=== PATIENT | female | born 1970 | race Caucasian/White ===

== ENCOUNTER → 2016-11-11 | Outpatient (CLI) | payer OTHER | LOC: FIMAGING 09:14 | DX: Z12.31 Encounter for screening mammogram for malignant neoplasm of breast (principal); Z80.3 Family history of malignant neoplasm of breast | CPT/HCPCS: G0202 ==

== ENCOUNTER → 2016-11-14 | Outpatient (CLI) | payer OTHER | LOC: FIMAGING 12:20 | PROVIDERS: ATTEND Internal Medicine Endocrinology, Diabetes & Metabolism | DX: E06.3 Autoimmune thyroiditis (principal) ==

== ENCOUNTER 2017-09-30 00:22 | Emergency (ER) | payer OTHER ==
--- NOTE | 2017-09-30 00:26 | EDPHY ---
H & P Time Seen by Provider: 09/30/17 00:27 HPI/ROS: HPI CHIEF COMPLAINT: Right thumb pain HISTORY OF PRESENT ILLNESS: Patient very pleasant 47-year-old female she caught her right thumb in the car door around 330 in the afternoon yesterday. She has ongoing throbbing pain. Denies any other areas of pain except to the right thumb. She has a subungual hematoma that she tried to self drained with a needle. She states she was able to get a little bit of blood out however continues to throb very much so. Pain is 8/10 throbbing. Prevented her to sleep. She took Tylenol prior to arrival. Past Medical History: Denies significant medical history except for hypothyroidism Past Surgical History: , appendectomy Social History: Denies drugs alcohol tobacco. Family History: Noncontributory ROS REVIEW OF SYSTEMS: A comprehensive 10 point review of systems is otherwise negative aside from elements mentioned in the history of present illness. Exam Constitutional appears well nontoxic no acute distress triage nursing summary reviewed, vital signs reviewed, awake/alert. Eyes normal conjunctivae and sclera, EOMI, PERRLA. HENT normal inspection, atraumatic, moist mucus membranes, no epistaxis, neck supple/ no meningismus, no raccoon eyes. Respiratory clear to auscultation bilaterally, normal breath sounds, no respiratory distress, no wheezing. Cardiovascular rate normal, regular rhythm, no murmur, no edema, distal pulses normal. Gastrointestinal soft, non-tender, no rebound, no guarding, normal bowel sounds, no distension, no pulsatile mass. Genitourinary no CVA tenderness. Musculoskeletal right hand: This is neurovascularly intact with good cap refill, full range of motion right thumb distal aspect there is a subungual hematoma present. There is a hole that was made in the nail bed self-inflicted with a needle. She has full range of motion of her right thumb there is swelling noted the distal aspect. no midline vertebral tenderness, full range of motion, no calf swelling, no tenderness of extremities, no meningismus, good pulses, neurovascularly intact. Skin pink, warm, & dry, no rash, skin atraumatic. Neurologic awake, alert and oriented x 3, AAOx3, moves all 4 extremities equally, motor intact, sensory intact, CN II-XII intact, normal cerebellar, normal vision, normal speech. Psychiatric normal mood/affect. Heme/Lymph/Immune no lymphadenopathy. Differential Diagnosis: Includes but is not limited to in a particular order tuft fracture, thumb contusion, bony contusion, soft tissue injury, thumb fracture, subungual hematoma Medical Decision Making: Plan for this patient x-ray of the right thumb. Will additionally most likely drain the subungual hematoma. Re-evaluation: X-ray of the right thumb reviewed. Negative for acute fracture. Image interpreted by myself. Procedure: Subungual drainage With the cautery stick very light direct pressure was applied to the nail bed where the subungual hematoma was present. 1 small pinhole size hole was made. There was good drainage of blood. Pressure was released and patient felt better. Source: Patient Constitutional: Initial Vital Signs Temperature (C) 37.1 C 09/30/17 00:27 Heart Rate 97 09/30/17 00:27 Respiratory Rate 18 09/30/17 00:27 Blood Pressure 126/87 H 09/30/17 00:27 O2 Sat (%) 95 09/30/17 00:27 O2 Delivery Mode Room Air Allergies/Adverse Reactions: amoxicillin [Amoxicillin] Allergy (Severe, Verified 09/30/17 00:31) Hives Sulfa (Sulfonamide Antibiotics) Allergy (Severe, Verified 09/30/17 00:31) Hives Home Medications: Medication Instructions Recorded SYNTHROID 10/23/09 Zithromax 09/30/17 Medical Decision Making - Data Points Medications Given: Discontinued Medications Ibuprofen (Motrin) 800 mg PO EDNOW ONE Stop: 09/30/17 00:41 Last Admin: 09/30/17 01:01 Dose: 800 mg Departure - Departure Disposition: Home, Routine, Self-Care Clinical Impression: Subungual hematoma of finger Qualifiers: Encounter type: initial encounter Qualified Code(s): S60.10XA - Contusion of unspecified finger with damage to nail, initial encounter Thumb contusion Qualifiers: Encounter type: initial encounter Damage to nail status: with damage Laterality : right Qualified Code(s): S60.111A - Contusion of right thumb with damage to nail, initial encounter Condition: Good Instructions: Subungual Hematoma (ED), Contusion in Adults (ED), Hematoma (ED) Additional Instructions: 1. I recommend that you ice her hand over the next 24-48 hours. 2. Finger splint for comfort 3. Ibuprofen for mild pain control. 4. Watch for signs of infection. This includes redness, swelling, worsening pain. Referrals: Heather Agee MD [Primary Care Provider] - As per Instructions
[2017-09-30 00:31] VITALS: RESP 18; TEMP 98.8; O2SAT 95
[2017-09-30] MEDS ORDERED: IBUPROFEN 800 MG TAB PO ONE (00:40)
[2017-09-30 01:57] VITALS: BP 124/83; PULSE 78
== END 2017-09-30 01:57 | disposition home or self-care (01) ==
PROC: 0H9QXZZ Drainage of Finger Nail, External Approach (ICD-10-PCS; principal; 2017-09-30)
DX: S60.111A Contusion of right thumb with damage to nail, initial encounter (principal); W23.0XXA Caught, crushed, jammed, or pinched between moving objects, initial encounter
CPT/HCPCS: L3925

== ENCOUNTER → 2018-03-18 | Outpatient (CLI) | payer OTHER | LOC: FIMAGING 11:04 | PROVIDERS: ATTEND Obstetrics & Gynecology | DX: Z12.31 Encounter for screening mammogram for malignant neoplasm of breast (principal) ==